=== PATIENT | male | born 1990 | race Caucasian/White ===

== ENCOUNTER 2021-01-07 10:11 | Emergency (ER) | payer OTHER ==
[2021-01-07] MEDS ORDERED: BACTRIM DS TAB1 EACH PO (12:02)
[2021-01-07] MEDS ORDERED: CEPHALEXIN500 M1 PO (12:02)
[2021-03-08] MEDS ORDERED: COLACE100 MG PO (11:22)
[2021-03-08] MEDS ORDERED: HYDROCODON-ACE1 EAC2 PO (11:22)
== END 2021-01-07 12:18 | disposition home or self-care (01) ==
LOC: ER1 10:11
DX: L05.01 Pilonidal cyst with abscess (principal)
CPT/HCPCS: 10080; 87070; 87205; 99283

== ENCOUNTER → 2021-03-08 | Day surgery (SDC) | payer OTHER ==
[~2021-03-08] MED LIST: BACTRIM DS TAB1 EACH PO; CEPHALEXIN500 M1 PO; COLACE100 MG PO; HYDROCODON-ACE1 EAC2 PO
== END | disposition home or self-care (01) ==
LOC: OR 08:38
DX: L05.91 Pilonidal cyst without abscess (principal); Z79.899 Other long term (current) drug therapy; Z20.822 Contact with and (suspected) exposure to COVID-19; Z90.89 Acquired absence of other organs
CPT/HCPCS: J0690; J1100; J1170; J2001; J2250; J2405; J2704; J2710; J3010; J7120

== ENCOUNTER 2022-02-21 21:51 | Emergency (ER) | payer OTHER ==
[2022-02-21 22:47] LABS: HEMOGLOBIN 15.4 gm/dl (14.0-17.5); RED BLOOD COUNT 4.78 M/UL (4.20-5.50); WHITE BLOOD COUNT 8.6 K/UL (4.5-11.0)
[2022-02-21 22:48] LABS: BUN/CREATININE RATIO 7 (0-10)
== END 2022-02-22 03:13 | disposition home or self-care (01) ==
LOC: ER1 21:51
PROVIDERS: Physician Assistant Medical
DX: R07.89 Other chest pain (principal)
CPT/HCPCS: 71045; 80053; 82550; 82553; 84484; 85025; 93005; 99285